=== PATIENT | male | born 1945 | race Caucasian/White ===

== ENCOUNTER 2016-12-13 06:07 | Day surgery (SDC) | payer OTHER ==
[~2016-12-13] VITALS: Ht 182.9 cm; Wt 81.8 kg
[~2016-12-13 06:07] MED LIST: ASPI81TA82 PO; COQ-100C5 PO; FISH1360 PO; ISOS30TA3 PO; PRAV20 PO; VITA400C70 PO
[2016-12-13 06:41] VITALS: BP 118/66; PULSE 89; RESP 18; TEMP 98.5; O2SAT 94
[2016-12-13] MEDS ORDERED: ISOS30TA3 PO (06:47)
[2016-12-13] MEDS ORDERED: OXYC1TAB63 PO (06:47)
[2016-12-13] MEDS ORDERED: VITA250C3 CHEW (06:47)
[2016-12-13] MEDS ORDERED: COQ-100C5 (06:47)
[2016-12-13] MEDS ORDERED: GLUC1TAB38 (06:47)
[2016-12-13] MEDS ORDERED: OMEG12007 ×2 (06:47)
[2016-12-13] MEDS ORDERED: MULTTAB27 (06:47)
[2016-12-13] MEDS ORDERED: POVIDONE IODINE 5% (ANTISEPSIS KIT) 4 APPLICATIONS EACH NARE SCH (07:30)
[2016-12-13] MEDS ORDERED: CHLORHEXIDINE GLUCONATE 2 % 1 PACK (2 CLOTHS) TOPICAL SCH (07:30)
[2016-12-13] MEDS ORDERED: VANCOMYCIN 1000 MG/NS 250 ML - implanted port/tunneled catheter IV SCH ×2 (07:30)
[2016-12-13] MEDS ORDERED: ceFAZolin 2 GM PREMIX 50 ML - implanted port/tunneled catheter insertion IV SCH (07:30)
[2016-12-13 07:33] LABS: APTT (PATIENT) 28.2 SEC (24.3-30.1); PROTHROMBIN TIME - PATIENT 10.5 SEC (9.8-11.6)
[2016-12-13] MEDS ORDERED: fentaNYL CITRATE 250 MCG/5 ML AMP ONE (07:45)
[2016-12-13] MEDS ORDERED: MIDAZOLAM HCL 5 MG/5 ML VIAL ONE (07:45)
[2016-12-13] MEDS ORDERED: SODIUM CHLORIDE 0.9% 1000 ML IV SCH (08:00)
[2016-12-13] MEDS ORDERED: LIDOCAINE 1%/EPINEPHrine 1:100,000 SOLN 20 ML VIAL ONE (08:17)
--- NOTE | 2016-12-13 08:54 | PD.RAD ---
Post Procedure Progress Note Pre Procedure Diagnosis: (1) Lung cancer Post Procedure Diagnosis: (1) Lung cancer Procedure Date: Dec 13, 2016 Supervising Radiologist: Sb Ham Proceduralist/Assist: Lisa Hopper, RT(R), Park Diaz RT(R)() Anesthesia: Conscious Sedation Plan of Activity Patient to Unit: ROPU Patient Condition: Good Additional Comments: Smartport tip at aCJ See PACS Report for procedural detail/treatment Sb Ham MD Dec 13, 2016 08:54
[2016-12-13 09:00] VITALS: BP 147/73; PULSE 95; RESP 20; TEMP 98; O2SAT 93
[2016-12-13] MEDS ORDERED: SODIUM CHLORIDE 0.9% FLUSH 10 ML FLUSH IVF PRN (09:00)
[2016-12-13 09:15] VITALS: BP 126/75; PULSE 100; RESP 18; O2SAT 92
--- NOTE | 2016-12-13 09:37 | RADRPT ---
EXAM DATE/TIME: 12/13/2016 08:28 [place] COMPARISON: No previous studies available for comparison. INDICATIONS : Patient with metastatic lung cancer in need of [id number]-Guaz placement. 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 Vancomycin within 2 hours of procedure, Ancef (or alternative) within 1 hour of procedure. DEVICE: 1. 8 [place] single lumen Smart power port with vortex PROCEDURE : 1. Continuous pulse oximetry and EKG monitoring. 2. Intravenous conscious sedation. 3. Ultrasound guidance for venous access. 4. Fluoroscopic guided implantable central venous port placement. The patient was placed supine. The neck was prepped in sterile fashion. Full sterile technique was u sed, including cap, mask, sterile gloves and gown, and a large sterile sheet. Hand hygiene and 2% ch lorhexidine Betadine was utilized per protocol for cutaneous antisepsis with appropriate dry time for site. The skin and subcutaneous tissues were infiltrated with local anesthetic solution. Under direct ultrasound guidance, central venous access was accomplished in the targeted vessel. The ultrasound images depicting access guidance were stored and saved to PACS for permanent record. A s ubcutaneous pocket was created using blunt dissection. The port was introduced to the pocket. The c atheter tubing was fed through a subcutaneous tunnel to the venotomy site. The catheter tubing was c ut to a suitable length and then was introduced through a valved Peel-Away sheath and positioned with catheter tubing tip at the cavo-atrial junction level. The pocket incision was closed with subcutic ular Vicryl suture. Steri-Strips were applied. The port was flushed and locked with heparin solutio n per protocol. Sterile dressing was applied to the site. The patient tolerated the procedure well. Conscious sedation was performed with the prescribed dosages and duration as above in the presence of an independent trained radiology nurse to assist in the monitoring of the patient. EKG and oximetry remained stable throughout the procedure. The patient tolerated the procedure well and there were no complications. The patient was sent to post anesthesia recovery in stable condition. CONCLUSION: Uncomplicated ultrasound and fluoroscopic guided implanted central venous port catheter placement as described in detail above. An 8 [place] Power port was placed. Sb Ham MD on December 13, 2016 at 9:35 Board Certified Radiologist. This report was verified electronically.
[2016-12-13 09:45] VITALS: BP 120/63; PULSE 92; RESP 16; O2SAT 93
[2016-12-13 10:15] VITALS: BP 126/66; PULSE 89; RESP 16; O2SAT 95
== END 2016-12-13 11:00 | disposition home or self-care (01) ==
LOC: HROP 06:07 → HRIP 06:15 → HROP 11:00
PROVIDERS: ATTEND Internal Medicine Hematology & Oncology
DX: C34.90 Malignant neoplasm of unspecified part of unspecified bronchus or lung (principal); C79.51 Secondary malignant neoplasm of bone; I25.10 Atherosclerotic heart disease of native coronary artery without angina pectoris; I10 Essential (primary) hypertension; E78.5 Hyperlipidemia, unspecified; Z87.891 Personal history of nicotine dependence
CPT/HCPCS: 36561; 76937; 77001; 85610; 85730; 99152; 99153; C1788; C1894; J0690; J1642; J2250; J3010; J3370; J7030; J7050